=== PATIENT | male | born 1945 | race Caucasian/White ===

== ENCOUNTER 2023-06-06 03:46 | Emergency (ER) | payer MEDICARE, MEDICAID ==
[2023-06-06] MEDS ORDERED: Sodium Chloride 0.9% 10 ML Syringe FLUSH PRN (03:48)
[2023-06-06 04:12] LABS: BASOPHILS ABSOLUTE AUTO 0.04 10^3/uL (0.00-0.10); BASOPHILS PERCENT AUTO 0.3 % (0.0-1.0); EOSINOPHILS ABSOLUTE AUTO 0.04 10^3/uL (0.10-0.30); EOSINOPHILS PERCENT AUTO 0.3 % (1.0-3.0); HEMATOCRIT 40.6 % (40.0-52.0); HEMOGLOBIN 13.7 g/dL (13.0-17.0); IMMATURE GRAN ABSOLUTE AUTO 0.06 10^3/uL (0.00-0.50); IMMATURE GRAN PERCENT AUTO 0.5 % (0.0-5.0); LYMPHOCYTES ABSOLUTE AUTO 0.65 10^3/uL (1.00-4.00); LYMPHOCYTES PERCENT AUTO 5.5 % (20.0-40.0); MEAN CORPUSCULAR HEMOGLOBIN 31.6 pg (27.0-31.0); MEAN CORPUSCULAR HGB CONC 33.7 g/dL (32.0-36.0); MEAN CORPUSCULAR VOLUME 93.8 fL (82.0-92.0); MEAN PLATELET VOLUME 10.1 fL (7.4-10.4); MONOCYTES ABSOLUTE AUTO 0.81 10^3/uL (0.10-0.80); MONOCYTES PERCENT AUTO 6.8 % (2.0-8.0); NEUTROPHILS ABSOLUTE AUTO 10.31 10^3/uL (2.50-7.00); NEUTROPHILS PERCENT AUTO 86.6 % (50.0-70.0); PLATELET COUNT,PLT 212 10^3/uL (150-400); RED BLOOD CELL COUNT 4.33 10^6/uL (4.50-6.00); RED CELL DISTRIBUTION WIDTH 12.8 % (11.5-14.5); WHITE BLOOD CELL COUNT,WBC 11.91 10^3/uL (5.00-10.00)
[2023-06-06] MEDS ORDERED: Sodium Chloride 0.9% 1,000 ML ONE ×2 (04:18→05:24)
[2023-06-06] MEDS ORDERED: Sodium Chloride 0.9% 1,000 ML IV ONE ×2 (04:19→05:24)
[2023-06-06] MEDS ORDERED: Succinylcholine 200 MG/10 ML MDV IVPUSH ONE (04:20)
[2023-06-06] MEDS ORDERED: Etomidate 2 MG/ML 10 ML SDV IVPUSH ONE (04:20)
[2023-06-06 04:30] LABS: ALANINE AMINOTRANSFERASE,ALT 22 U/L (14-63); ALBUMIN 3.39 g/dL (3.40-5.00); ALKALINE PHOSPHATASE 106 U/L (46-116); ANION GAP 19.8 mmol/L (5-15); ASPARTATE AMNIOTRANSFERASE,AST 21 U/L (15-37); BILIRUBIN TOTAL 0.5 mg/dL (0.2-1.0); BLOOD UREA NITROGEN,BUN 20 mg/dL (7-18); CALCIUM 8.8 mg/dL (8.7-10.3); CARBON DIOXIDE,CO2 21.5 mmol/L (21.0-32.0); CHLORIDE,CL 95 mmol/L (98-107); CREATININE 0.87 mg/dL (0.51-1.17); ESTIMATED GFR 88 mL/min (>=60); GLUCOSE RANDOM 183 mg/dL (70-140); POTASSIUM,K 3.3 mmol/L (3.5-5.1); PROTEIN TOTAL,TP 7.2 g/dL (6.4-8.2); SODIUM,NA 133 mmol/L (136-145)
[2023-06-06] MEDS ORDERED: Midazolam 1 MG/ML 2 ML SDV IVPUSH ONE ×2 (04:32→05:14)
[2023-06-06 04:33] LABS: B-TYPE NATRIURETIC PEPTIDE,BNP 130 pg/mL (0-100)
[2023-06-06 04:43] LABS: PROTHROMBIN TIME 10.3 SEC (9.2-11.2); PTT,PARTIAL THROMBOPLSTIN TIME 23.6 SEC (22.8-31.4)
[2023-06-06 04:51] LABS: BASE EXCESS ARTERIAL -2 mmol/L (-2-3); BICARBONATE,ARTERIAL 23.2 mmol/L (22-26); O2 DELIVERY DEVICE NON REBR MASK; O2 SATURATION ARTERIAL 100 % (95-98); PCO2 ARTERIAL 38 mmHG (35-45); PH,ARTERIAL 7.39 (7.35-7.45)
[2023-06-06 04:55] LABS: PO2 ARTERIAL 226 mmHG (80-105)
[2023-06-06] MEDS ORDERED: Midazolam 1 MG/ML 2 ML SDV ONE (07:02)
== END 2023-06-06 05:39 ==
LOC: KA.ED 03:46
DX: R06.03 Acute respiratory distress (principal); J44.9 Chronic obstructive pulmonary disease, unspecified; I10 Essential (primary) hypertension; Z86.73 Personal history of transient ischemic attack (TIA), and cerebral infarction without residual deficits; Z86.16 Personal history of COVID-19; Z91.048 Other nonmedicinal substance allergy status; Z79.82 Long term (current) use of aspirin; Z79.899 Other long term (current) drug therapy; Z91.09 Other allergy status, other than to drugs and biological substances
CPT/HCPCS: 31500; 36600; 43752; 51702; 70450; 71045; 80053; 82803; 83880; 84484; 85025; 85610; 85730; 93005; 96365; 99291-25; 99292; J0330; J2250; J2371; J3490; J7030; Q3014

== ENCOUNTER 2024-05-02 02:37 | Inpatient (IN) | payer MEDICARE, MEDICAID ==
[2024-05-02] MEDS ORDERED: Sodium Chloride 0.9% 10 ML Syringe FLUSH PRN (02:38)
[2024-05-02] MEDS: methylPREDNISolone Sodium Succinate 125 MG/2 ML SDV IVPUSH ONE (02:56)
[2024-05-02] MEDS: Albuterol/Ipratropium 3.0-0.5 MG/3 ML Neb Soln NEB ONE (02:57)
[2024-05-02 02:58] LABS: BASOPHILS ABSOLUTE AUTO 0.02 10^3/uL (0.00-0.10); BASOPHILS PERCENT AUTO 0.2 % (0.0-1.0); EOSINOPHILS ABSOLUTE AUTO 0.03 10^3/uL (0.10-0.30); EOSINOPHILS PERCENT AUTO 0.2 % (1.0-3.0); HEMATOCRIT 34.6 % (40.0-52.0); HEMOGLOBIN 11.3 g/dL (13.0-17.0); IMMATURE GRAN ABSOLUTE AUTO 0.03 10^3/uL (0.00-0.04); IMMATURE GRAN PERCENT AUTO 0.2 % (0.0-0.4); LYMPHOCYTES ABSOLUTE AUTO 0.21 10^3/uL (1.00-4.00); LYMPHOCYTES PERCENT AUTO 1.7 % (20.0-40.0); MEAN CORPUSCULAR HEMOGLOBIN 29.2 pg (27.0-31.0); MEAN CORPUSCULAR HGB CONC 32.7 g/dL (32.0-36.0); MEAN CORPUSCULAR VOLUME 89.4 fL (82.0-92.0); MEAN PLATELET VOLUME 10.8 fL (7.4-10.4); MONOCYTES ABSOLUTE AUTO 0.59 10^3/uL (0.10-0.80); MONOCYTES PERCENT AUTO 4.7 % (2.0-8.0); NEUTROPHILS ABSOLUTE AUTO 11.58 10^3/uL (2.50-7.00); PLATELET COUNT,PLT 194 10^3/uL (150-400); RED BLOOD CELL COUNT 3.87 10^6/uL (4.50-6.00); RED CELL DISTRIBUTION WIDTH 13.9 % (11.5-14.5); WHITE BLOOD CELL COUNT,WBC 12.46 10^3/uL (5.00-10.00)
[2024-05-02 03:07] LABS: HCO3 ARTERIAL,POC 24.1 mmol/L (21-28); PCO2 ARTERIAL,POC 30 mmHg (35-48); PH ARTERIAL,POC 7.51 pH (7.35-7.45); PO2 ARTERIAL,POC 72 mmHg (83-108)
[2024-05-02] MEDS: Sodium Chloride 0.9% 1,000 ML IV ONE (03:15)
[2024-05-02 03:16] LABS: ALANINE AMINOTRANSFERASE,ALT 16 U/L (14-63); ALBUMIN 2.84 g/dL (3.40-5.00); ALKALINE PHOSPHATASE 97 U/L (46-116); ANION GAP 10.4 mmol/L (5-15); ASPARTATE AMNIOTRANSFERASE,AST 18 U/L (15-37); BILIRUBIN TOTAL 0.6 mg/dL (0.2-1.0); BLOOD UREA NITROGEN,BUN 32 mg/dL (7-18); CALCIUM 8.7 mg/dL (8.7-10.3); CARBON DIOXIDE,CO2 28.4 mmol/L (21.0-32.0); CHLORIDE,CL 100 mmol/L (98-107); CREATININE 1.15 mg/dL (0.51-1.17); GLUCOSE RANDOM 109 mg/dL (70-140); POTASSIUM,K 3.8 mmol/L (3.5-5.1); PROTEIN TOTAL,TP 6.6 g/dL (6.4-8.2); SODIUM,NA 135 mmol/L (136-145)
[2024-05-02 03:17] LABS: ESTIMATED GFR 65 mL/min (>=60)
[2024-05-02 03:18] LABS: LACTIC ACID 1.3 mmol/L (0.4-2.0)
[2024-05-02] MEDS: Cefepime 2 GM Vial IVPUSH ONE (03:45)
[2024-05-02] MEDS ORDERED: Docusate Sodium 100 MG Cap PO PRN (07:00)
[2024-05-02] MEDS: guaiFENesin 600 MG Tab.ER PO SCH (08:26)
[2024-05-02] MEDS: levETIRAcetam 500 MG Tab PO SCH (08:27)
[2024-05-02] MEDS: Azithromycin 250 MG Tab PO SCH (08:27)
[2024-05-02] MEDS: Enoxaparin 40 MG/0.4 ML Syringe SUBCUT SCH (08:28)
[2024-05-02] MEDS: Aspirin 81 MG Tab.EC PO SCH (08:28)
[2024-05-02] MEDS: Albuterol/Ipratropium 3.0-0.5 MG/3 ML Neb Soln INH SCH (08:28)
[2024-05-02] MEDS: Budesonide 0.5 MG/2 ML Neb Susp INH SCH (08:29)
[2024-05-02] MEDS: Metoprolol Succinate 25 MG Tab.ER PO SCH (08:30)
[2024-05-02] MEDS: cefTRIAXone 1 GM Vial IVPUSH SCH (15:04)
[2024-05-02] MEDS: Melatonin 3 MG Tab PO SCH (20:28)
[2024-05-02] MEDS: atorvaSTATin 40 MG Tab PO SCH (20:28)
[2024-05-03] MEDS: Midodrine 5 MG Tab PO ONE (00:27)
[2024-05-03 07:46] LABS: BASOPHILS ABSOLUTE AUTO 0.02 10^3/uL (0.00-0.10); BASOPHILS PERCENT AUTO 0.2 % (0.0-1.0); HEMATOCRIT 27.6 % (40.0-52.0); HEMOGLOBIN 9.2 g/dL (13.0-17.0); IMMATURE GRAN ABSOLUTE AUTO 0.02 10^3/uL (0.00-0.04); IMMATURE GRAN PERCENT AUTO 0.2 % (0.0-0.4); LYMPHOCYTES ABSOLUTE AUTO 0.27 10^3/uL (1.00-4.00); LYMPHOCYTES PERCENT AUTO 2.7 % (20.0-40.0); MEAN CORPUSCULAR HEMOGLOBIN 29.9 pg (27.0-31.0); MEAN CORPUSCULAR HGB CONC 33.3 g/dL (32.0-36.0); MEAN CORPUSCULAR VOLUME 89.6 fL (82.0-92.0); MEAN PLATELET VOLUME 11.3 fL (7.4-10.4); MONOCYTES ABSOLUTE AUTO 0.83 10^3/uL (0.10-0.80); MONOCYTES PERCENT AUTO 8.4 % (2.0-8.0); NEUTROPHILS ABSOLUTE AUTO 8.76 10^3/uL (2.50-7.00); NEUTROPHILS PERCENT AUTO 88.5 % (50.0-70.0); PLATELET COUNT,PLT 146 10^3/uL (150-400); RED BLOOD CELL COUNT 3.08 10^6/uL (4.50-6.00); RED CELL DISTRIBUTION WIDTH 14.4 % (11.5-14.5)
[2024-05-03 07:55] LABS: ANION GAP 7.1 mmol/L (5-15); CALCIUM 8.5 mg/dL (8.7-10.3); CARBON DIOXIDE,CO2 27.5 mmol/L (21.0-32.0); CREATININE 0.91 mg/dL (0.51-1.17); EST CRCL DRUG DOSING (CG) 61.54 mL/min; POTASSIUM,K 3.6 mmol/L (3.5-5.1)
[2024-05-03] MEDS ORDERED: Midodrine 5 MG Tab PO PRN (10:30)
[2024-05-03] MEDS: Cefepime 2 GM Vial ONE (14:26)
[2024-05-04 10:25] LABS: HEMATOCRIT 30.9 % (40.0-52.0); MEAN CORPUSCULAR HEMOGLOBIN 29.2 pg (27.0-31.0); MEAN CORPUSCULAR HGB CONC 32.4 g/dL (32.0-36.0); MEAN CORPUSCULAR VOLUME 90.4 fL (82.0-92.0); MEAN PLATELET VOLUME 10.6 fL (7.4-10.4); PLATELET COUNT,PLT 169 10^3/uL (150-400); RED BLOOD CELL COUNT 3.42 10^6/uL (4.50-6.00); RED CELL DISTRIBUTION WIDTH 14.4 % (11.5-14.5); WHITE BLOOD CELL COUNT,WBC 6.77 10^3/uL (5.00-10.00)
[2024-05-04 10:58] LABS: LYMPHOCYTES ABSOLUTE MAN 0.4062; LYMPHOCYTES PERCENT MAN 6 % (20-40); MONOCYTES ABSOLUTE MAN 0.2708; MONOCYTES PERCENT MAN 4 % (2-8); SEG NEUTROPHILS PERCENT MAN 90 % (50-70)
[2024-05-04] MEDS: Sodium Chloride 0.65% Nasal Spray 45 ML Bottle NAS PRN (11:05)
[2024-05-04 11:14] LABS: ANION GAP 11.4 mmol/L (5-15); CALCIUM 8.8 mg/dL (8.7-10.3); CARBON DIOXIDE,CO2 27.3 mmol/L (21.0-32.0); CREATININE 0.81 mg/dL (0.51-1.17); EST CRCL DRUG DOSING (CG) 69.14 mL/min; POTASSIUM,K 3.7
[2024-05-04] MEDS: predniSONE 20 MG Tab PO SCH (13:13)
[2024-05-05] MEDS ORDERED: predniSONE 20 MG Tab PO SCH (08:00)
[2024-05-05] MEDS: Acetaminophen 325 MG Tab PO PRN (10:20)
[2024-05-05] MEDS: Melatonin 3 MG Tab PO PRN (20:28)
[2024-05-05] MEDS: Albuterol 0.083% 2.5 MG/3 ML Neb Soln INH PRN (23:02)
[2024-05-06] MEDS: Sodium Chloride 0.9% 10 ML Syringe FLUSH PRN (05:10)
[2024-05-06] MEDS: Pantoprazole 40 MG Vial IVPUSH SCH (05:10)
[2024-05-06 05:32] LABS: HEMATOCRIT 23.1 % (40.0-52.0); IMMATURE GRAN ABSOLUTE AUTO 0.04 10^3/uL (0.00-0.04); IMMATURE GRAN PERCENT AUTO 0.6 % (0.0-0.4); LYMPHOCYTES ABSOLUTE AUTO 0.42 10^3/uL (1.00-4.00); LYMPHOCYTES PERCENT AUTO 6.4 % (20.0-40.0); MEAN CORPUSCULAR HEMOGLOBIN 29.4 pg (27.0-31.0); MEAN CORPUSCULAR HGB CONC 32.5 g/dL (32.0-36.0); MEAN CORPUSCULAR VOLUME 90.6 fL (82.0-92.0); MEAN PLATELET VOLUME 10.6 fL (7.4-10.4); MONOCYTES ABSOLUTE AUTO 0.58 10^3/uL (0.10-0.80); MONOCYTES PERCENT AUTO 8.8 % (2.0-8.0); NEUTROPHILS ABSOLUTE AUTO 5.56 10^3/uL (2.50-7.00); NEUTROPHILS PERCENT AUTO 84.2 % (50.0-70.0); PLATELET COUNT,PLT 174 10^3/uL (150-400); RED BLOOD CELL COUNT 2.55 10^6/uL (4.50-6.00); RED CELL DISTRIBUTION WIDTH 14.4 % (11.5-14.5)
[2024-05-06 05:52] LABS: HEMOGLOBIN 7.5 g/dL (13.0-17.0)
[2024-05-06 07:04] LABS: ALBUMIN 2.26 g/dL (3.40-5.00); ANION GAP 12.4 mmol/L (5-15); BILIRUBIN TOTAL 0.3 mg/dL (0.2-1.0); CARBON DIOXIDE,CO2 27.8 mmol/L (21.0-32.0); CREATININE 0.89 mg/dL (0.51-1.17); EST CRCL DRUG DOSING (CG) 62.92 mL/min; POTASSIUM,K 4.2 mmol/L (3.5-5.1); PROTEIN TOTAL,TP 5.6 g/dL (6.4-8.2)
[2024-05-06 07:23] LABS: LACTIC ACID 1.8 mmol/L (0.4-2.0)
[2024-05-06] MEDS ORDERED: Phenol 1.4% Oral Spray 177 ML Bottle MUCMEM PRN (11:33)
[2024-05-06 13:00] LABS: HEMATOCRIT 26.9 % (40.0-52.0); HEMOGLOBIN 8.7 g/dL (13.0-17.0)
[2024-05-06 15:57] VITALS: BP 117/59; PULSE 94
== END 2024-05-06 14:54 | DRG 193 ==
LOC: KA.ED 02:37 → KA.MS 03:40
PROVIDERS: ADMIT Physician Assistant Medical; ATTEND Internal Medicine
DX: J18.9 Pneumonia, unspecified organism (principal); R09.02 Hypoxemia; I95.9 Hypotension, unspecified; J96.21 Acute and chronic respiratory failure with hypoxia; D84.9 Immunodeficiency, unspecified; J44.9 Chronic obstructive pulmonary disease, unspecified; Z91.048 Other nonmedicinal substance allergy status; J44.0 Chronic obstructive pulmonary disease with (acute) lower respiratory infection; J44.1 Chronic obstructive pulmonary disease with (acute) exacerbation; J91.8 Pleural effusion in other conditions classified elsewhere; K92.1 Melena; I50.9 Heart failure, unspecified; I25.10 Atherosclerotic heart disease of native coronary artery without angina pectoris; H40.9 Unspecified glaucoma; E78.00 Pure hypercholesterolemia, unspecified; I10 Essential (primary) hypertension; I73.9 Peripheral vascular disease, unspecified; K59.09 Other constipation; F41.9 Anxiety disorder, unspecified; M81.0 Age-related osteoporosis without current pathological fracture; Z66 Do not resuscitate; D64.9 Anemia, unspecified; G40.909 Epilepsy, unspecified, not intractable, without status epilepticus; Z87.81 Personal history of (healed) traumatic fracture; Z85.118 Personal history of other malignant neoplasm of bronchus and lung; Z85.828 Personal history of other malignant neoplasm of skin; Z98.890 Other specified postprocedural states; Z99.81 Dependence on supplemental oxygen; Z86.73 Personal history of transient ischemic attack (TIA), and cerebral infarction without residual deficits; Z91.09 Other allergy status, other than to drugs and biological substances; Z79.82 Long term (current) use of aspirin; Z79.1 Long term (current) use of non-steroidal anti-inflammatories (NSAID); Z79.51 Long term (current) use of inhaled steroids; Z79.899 Other long term (current) drug therapy; Z79.02 Long term (current) use of antithrombotics/antiplatelets; Z86.16 Personal history of COVID-19; Z87.891 Personal history of nicotine dependence; Z85.038 Personal history of other malignant neoplasm of large intestine
CPT/HCPCS: 36415; 36600; 71045; 71250; 80048; 80053; 82270; 82803; 83605; 83880; 84484; 85007; 85014; 85018; 85025; 85027; 87040; 93005; 93010; 94640; 99223-GT; 99232-GT; 99233-GT; 99239-GT; 99284; A6212; A9270-GY; J0692; J0696; J1650; J2470; J2919; J3490; J7030; J7512; J7613-GY; J7620-GY; Q3014

== ENCOUNTER 2024-10-01 11:26 | Emergency (ER) | payer MEDICARE, MEDICAID ==
[2024-10-01 12:12] LABS: BASOPHILS ABSOLUTE AUTO 0.02 10^3/uL (0.00-0.10); BASOPHILS PERCENT AUTO 0.3 % (0.0-1.0); EOSINOPHILS ABSOLUTE AUTO 0.03 10^3/uL (0.10-0.30); EOSINOPHILS PERCENT AUTO 0.4 % (1.0-3.0); HEMATOCRIT 29.6 % (40.0-52.0); HEMOGLOBIN 9.3 g/dL (13.0-17.0); IMMATURE GRAN ABSOLUTE AUTO 0.01 10^3/uL (0.00-0.04); IMMATURE GRAN PERCENT AUTO 0.1 % (0.0-0.4); LYMPHOCYTES PERCENT AUTO 2.6 % (20.0-40.0); MEAN CORPUSCULAR HEMOGLOBIN 25.1 pg (27.0-31.0); MEAN CORPUSCULAR HGB CONC 31.4 g/dL (32.0-36.0); MEAN PLATELET VOLUME 11.2 fL (7.4-10.4); MONOCYTES PERCENT AUTO 9.2 % (2.0-8.0); NEUTROPHILS ABSOLUTE AUTO 6.66 10^3/uL (2.50-7.00); NEUTROPHILS PERCENT AUTO 87.4 % (50.0-70.0); PLATELET COUNT,PLT 174 10^3/uL (150-400); RED CELL DISTRIBUTION WIDTH 18.3 % (11.5-14.5); WHITE BLOOD CELL COUNT,WBC 7.62 10^3/uL (5.00-10.00)
[2024-10-01] MEDS: Albuterol/Ipratropium 3.0-0.5 MG/3 ML Neb Soln NEB ONE ×2 (12:15→14:02)
[2024-10-01] MEDS: methylPREDNISolone Sodium Succinate 125 MG/2 ML SDV IVPUSH ONE (12:29)
[2024-10-01 12:32] LABS: ALBUMIN 2.99 g/dL (3.40-5.00); ANION GAP 11.8 mmol/L (5-15); BILIRUBIN TOTAL 0.4 mg/dL (0.2-1.0); C-REACTIVE PROTEIN 5.05 mg/dL (0.00-0.50); CALCIUM 9.1 mg/dL (8.7-10.3); CARBON DIOXIDE,CO2 28.9 mmol/L (21.0-32.0); CREATININE 0.92 mg/dL (0.51-1.17); EST CRCL DRUG DOSING (CG) 58.14 mL/min; POTASSIUM,K 3.7 mmol/L (3.5-5.1); PROTEIN TOTAL,TP 6.9 g/dL (6.4-8.2)
[2024-10-01 12:34] LABS: PROTHROMBIN TIME 10.4 SEC (9.1-12.0)
[2024-10-01] MEDS: Furosemide 40 MG/4 ML VIAL IVPUSH ONE (13:53)
[2024-10-01] MEDS: Azithromycin 250 MG Tab PO ONE ×2 (14:28)
[2024-10-01] MEDS: predniSONE 20 MG Tab PO SCH (14:28)
== END 2024-10-01 15:53 ==
LOC: KA.ED 11:26 → SUPCPDRO 11:26 → KA.ED 15:53
DX: J44.1 Chronic obstructive pulmonary disease with (acute) exacerbation (principal); S42.302D Unspecified fracture of shaft of humerus, left arm, subsequent encounter for fracture with routine healing; I11.0 Hypertensive heart disease with heart failure; I50.9 Heart failure, unspecified; E78.00 Pure hypercholesterolemia, unspecified; Z91.048 Other nonmedicinal substance allergy status; Z79.899 Other long term (current) drug therapy; Z86.16 Personal history of COVID-19; X58.XXXD Exposure to other specified factors, subsequent encounter
CPT/HCPCS: 36415; 36556; 71045; 80053; 84484; 85025; 85610; 86140; 87428-QW; 93005; 94640; 96374; 96375; 99285-25; A9270-GY; J1642; J1938; J2919; J7512

== ENCOUNTER 2025-02-17 14:03 | Emergency (ER) | payer MEDICARE, MEDICAID ==
[2025-02-17 15:02] LABS: BASOPHILS ABSOLUTE AUTO 0.02 10^3/uL (0.00-0.10); BASOPHILS PERCENT AUTO 0.3 % (0.0-1.0); EOSINOPHILS ABSOLUTE AUTO 0.06 10^3/uL (0.10-0.30); EOSINOPHILS PERCENT AUTO 0.9 % (1.0-3.0); IMMATURE GRAN ABSOLUTE AUTO 0.02 10^3/uL (0.00-0.04); IMMATURE GRAN PERCENT AUTO 0.3 % (0.0-0.4); LYMPHOCYTES ABSOLUTE AUTO 0.27 10^3/uL (1.00-4.00); LYMPHOCYTES PERCENT AUTO 4.0 % (20.0-40.0); MEAN PLATELET VOLUME 10.9 fL (7.4-10.4); MONOCYTES ABSOLUTE AUTO 0.69 10^3/uL (0.10-0.80); MONOCYTES PERCENT AUTO 10.3 % (2.0-8.0); NEUTROPHILS ABSOLUTE AUTO 5.65 10^3/uL (2.50-7.00); NEUTROPHILS PERCENT AUTO 84.2 % (50.0-70.0); PLATELET COUNT,PLT 143 10^3/uL (150-400); RED BLOOD CELL COUNT 3.50 10^6/uL (4.50-6.00); RED CELL DISTRIBUTION WIDTH 15.3 % (11.5-14.5); WHITE BLOOD CELL COUNT,WBC 6.71 10^3/uL (5.00-10.00)
[2025-02-17 15:16] LABS: ALANINE AMINOTRANSFERASE,ALT 14 U/L (14-63); ASPARTATE AMNIOTRANSFERASE,AST 16 U/L (15-37); BILIRUBIN TOTAL 0.3 mg/dL (0.2-1.0); BLOOD UREA NITROGEN,BUN 20 mg/dL (7-18); CARBON DIOXIDE,CO2 32.4 mmol/L (21.0-32.0); CHLORIDE,CL 101 mmol/L (98-107); CREATININE 0.75 mg/dL (0.51-1.17); ESTIMATED GFR 91 mL/min (>=60); GLUCOSE RANDOM 102 mg/dL (70-140); POTASSIUM,K 3.7 mmol/L (3.5-5.1); PROTEIN TOTAL,TP 6.3 g/dL (6.4-8.2); SODIUM,NA 139 mmol/L (136-145)
[2025-02-17] MEDS: Iopamidol 755 Mg/ML 100 ML Bottle IV ONE (15:49)
== END 2025-02-17 18:11 ==
LOC: KA.ED 14:03
DX: R22.0 Localized swelling, mass and lump, head (principal); I11.0 Hypertensive heart disease with heart failure; I50.9 Heart failure, unspecified; I25.10 Atherosclerotic heart disease of native coronary artery without angina pectoris; Z86.16 Personal history of COVID-19; Z88.8 Allergy status to other drugs, medicaments and biological substances; Z79.899 Other long term (current) drug therapy; Z79.82 Long term (current) use of aspirin
CPT/HCPCS: 70487; 80053; 83605; 85025; 99284; Q9967